=== PATIENT | female | born 1995 | race Two or more races ===

== ENCOUNTER 2021-01-06 16:23 | Emergency (ER) | payer OTHER ==
[~2021-01-06] VITALS: Ht 157.5 cm; Wt 43.1 kg
[2021-01-06] MEDS ORDERED: ATABEX DHA 200200 MG (16:35)
[2021-01-06] MEDS ORDERED: MONISTAT 745 GM VAG (17:37)
== END 2021-01-06 17:45 | disposition home or self-care (01) ==
LOC: ER 16:23
DX: N76.0 Acute vaginitis (principal)

== ENCOUNTER 2021-07-21 03:58 | Inpatient (IN) | payer OTHER ==
[~2021-07-21] VITALS: Ht 162.6 cm; Wt 50.8 kg
[~2021-07-21 03:58] MED LIST: ATABEX DHA 200200 MG; MONISTAT 745 GM VAG
== END 2021-07-23 11:56 | disposition home or self-care (01) | DRG 807 ==
LOC: LDR 03:58 → O/R 11:33 → LDR 11:34 → OB/GYN 16:41
PROVIDERS: ADMIT Obstetrics & Gynecology; ATTEND Obstetrics & Gynecology
PROC: 10E0XZZ Delivery of Products of Conception, External Approach (ICD-10-PCS; principal; 2021-07-21)
PROC: 4A1HXCZ Monitoring of Products of Conception, Cardiac Rate, External Approach (ICD-10-PCS; 2021-07-21)
PROC: 0UQG7ZZ Repair Vagina, Via Natural or Artificial Opening (ICD-10-PCS; 2021-07-21)
PROC: 3E033VJ Introduction of Other Hormone into Peripheral Vein, Percutaneous Approach (ICD-10-PCS; 2021-07-21)
DX: O71.4 Obstetric high vaginal laceration alone (principal); Z37.0 Single live birth; Z3A.38 38 weeks gestation of pregnancy; Z20.822 Contact with and (suspected) exposure to COVID-19

== ENCOUNTER 2021-07-31 06:42 | Outpatient (CLI) | payer OTHER | END 2021-07-31 13:53 | disposition home or self-care (01) | LOC: OBS/DEL 06:42 | PROVIDERS: ATTEND Obstetrics & Gynecology | DX: O72.1 Other immediate postpartum hemorrhage (principal); Z20.822 Contact with and (suspected) exposure to COVID-19 ==

== ENCOUNTER 2023-05-14 13:28 | Outpatient (CLI) | payer OTHER | END 2023-05-14 13:30 | disposition home or self-care (01) | LOC: PRENATAL 13:28 | PROVIDERS: ATTEND Obstetrics & Gynecology Maternal & Fetal Medicine | DX: O36.90X0 Maternal care for fetal problem, unspecified, unspecified trimester, not applicable or unspecified (principal); Z36.82 Encounter for antenatal screening for nuchal translucency; Z14.8 Genetic carrier of other disease; Z3A.13 13 weeks gestation of pregnancy ==

== ENCOUNTER 2023-06-30 11:18 | Outpatient (CLI) | payer OTHER | END 2023-06-30 11:19 | disposition home or self-care (01) | LOC: PRENATAL 11:18 | PROVIDERS: ATTEND Obstetrics & Gynecology Maternal & Fetal Medicine | DX: O35.3XX0 Maternal care for (suspected) damage to fetus from viral disease in mother, not applicable or unspecified (principal); O44.00 Complete placenta previa NOS or without hemorrhage, unspecified trimester; Z3A.19 19 weeks gestation of pregnancy ==

== ENCOUNTER 2023-09-27 15:19 | Outpatient (CLI) | payer OTHER | END 2023-09-27 15:20 | disposition home or self-care (01) | LOC: PRENATAL 15:19 | PROVIDERS: ATTEND Obstetrics & Gynecology Maternal & Fetal Medicine | DX: O26.843 Uterine size-date discrepancy, third trimester (principal); O36.8130 Decreased fetal movements, third trimester, not applicable or unspecified; Z3A.32 32 weeks gestation of pregnancy ==

== ENCOUNTER 2023-10-28 11:43 | Inpatient (IN) | payer OTHER ==
[~2023-10-28] VITALS: Ht 162.6 cm; Wt 55.8 kg
[2023-10-28] MEDS ORDERED: RINGERS SOLUTION,LACTATED 1,000 ML IV SCH (12:00)
[2023-10-28 12:43] LABS: URINE APPEARANCE Cloudy; URINE BILIRRUBIN Negative (NEGATIVE); URINE BLOOD Small; URINE COLOR Yellow; URINE GLUCOSE Negative (NEGATIVE); URINE KETONE Negative (NEGATIVE); URINE LEUKOCYTE Large; URINE NITRATE Negative
[2023-10-28 12:44] LABS: HEMATOCRIT 32.8 % (36.0-45.00); HEMOGLOBIN 11.5 g/dL (12.0-15.00); MEAN CELL VOLUME 86.8 fL (80.00-100.00); MEAN CORPUSCULAR HEMOGLOBIN 30.4 pg (27.00-32.0); MEAN CORPUSCULAR HGB CONC 35.1 g/dl (32.0-36.0); PLATELET COUNT 157 K/uL (150-450); RED BLOOD COUNT 3.78 M/uL (4.00-6.00); RED CELL DISTRIBUTION WIDTH 13.3 % (11.5-14.5); URINE BACTERIA 4044.6 uL (0.0-1933); URINE EPITHELIAL CELLS 111.4 uL (0.0-38.8); URINE RBC 21.6 uL (0.0-20.8); URINE WBC 128.6 uL (0.0-23.2)
[2023-10-28 13:04] LABS: URINE CAST 0.45 uL (0.0-1.40); URINE PROTEIN 100 (NEGATIVE); URINE YEAST MANY /hpf
[2023-10-28] MEDS ORDERED: PRENATAL TABLE1 EAC1 PO (13:13)
[2023-10-28 13:18] LABS: ALT/SGPT 10 U/L (12-78); AST/SGOT 22 U/L (15-37)
[2023-10-28] MEDS ORDERED: AMPICILLIN SODIUM 2,000 MG VIAL IV ONE (17:45)
[2023-10-28 18:30] LABS: INR 0.97; PARTIAL THROMBOPLASTIN TIME 30.6 SECONDS (22.0-34.0); PROTHROMBIN TIME 10.2 SECONDS (9.0-11.5)
[2023-10-28 18:31] LABS: CALCIUM 8.5 mg/dL (8.5-10.1); CREATININE SERUM 0.63 mg/dL (0.55-1.02); GFR 111.72; POTASSIUM 4.29 mEq/L (3.5-5.1)
[2023-10-28] MEDS ORDERED: AMPICILLIN SODIUM 1,000 MG VIAL IV SCH (21:00)
[2023-10-28] MEDS ORDERED: OXYTOCIN 20 UNITS/1000ML RL PIGGYBAG IV ONE (23:12)
[2023-10-28] MEDS ORDERED: ERYTHROMYCIN BASE 1 GM TUBE OP ONE (23:12)
[2023-10-28] MEDS ORDERED: LIDOCAINE HCL 1% 10ML VIAL ONE (23:13)
[2023-10-28] MEDS ORDERED: CHLORHEXIDINE GLUCONATE 120 ML BOTTLE TOP ONE (23:13)
[2023-10-29] MEDS ORDERED: OXYTOCIN 20 UNITS/500ML RL PIGGYBAG IV ONE (00:06)
[2023-10-29] MEDS ORDERED: OXYTOCIN 500 ML IV SCH (00:15)
[2023-10-29] MEDS ORDERED: MORPHINE SULFATE 4 MG/ML VIAL IV STA (01:27)
[2023-10-29] MEDS ORDERED: OXYTOCIN 10 UNITS/ML VIAL ONE (01:37)
[2023-10-29] MEDS ORDERED: IBUprofen 400 MG TABLET PO PRN (02:15)
[2023-10-29] MEDS ORDERED: ERYTHROMYCIN BASE 1 GM TUBE OP SCH (04:00)
[2023-10-29] MEDS ORDERED: CHLORHEXIDINE GLUCONATE 120 ML BOTTLE TP SCH (04:00)
[2023-10-29] MEDS ORDERED: OXYTOCIN 1,000 ML IV SCH (04:00)
[2023-10-29] MEDS ORDERED: OXYTOCIN 10 UNITS/ML VIAL IM STA (04:00)
[2023-10-29 05:34] LABS: BICARBONATE 22.8 mmol/l (23-25); SaO2 68.1 %; Tco2 24.2 mmol/l
[2023-10-29 06:16] LABS: o2 21 %
[2023-10-29] MEDS ORDERED: hydrALAZINE HCL 20 MG VIAL IV NR (06:45)
[2023-10-29 09:32] LABS: HEMATOCRIT 32.9 % (36.0-45.00); HEMOGLOBIN 11.7 g/dL (12.0-15.00); MEAN CELL VOLUME 86.5 fL (80.00-100.00); MEAN CORPUSCULAR HEMOGLOBIN 30.7 pg (27.00-32.0); MEAN CORPUSCULAR HGB CONC 35.4 g/dl (32.0-36.0); PLATELET COUNT 157 K/uL (150-450); RED BLOOD COUNT 3.81 M/uL (4.00-6.00); RED CELL DISTRIBUTION WIDTH 13.4 % (11.5-14.5)
[2023-10-29] MEDS ORDERED: NIFEDIPINE 30 MG TAB.SA.OSM PO NR (11:00)
[2023-10-29] MEDS ORDERED: NIFEDIPINE 30 MG TAB.SA.OSM PO SCH (17:00)
== END 2023-10-31 15:31 | disposition home or self-care (01) | DRG 807 ==
LOC: OBS/DEL 11:43 → LDR 22:55 → OB/GYN 10-29 03:50
PROVIDERS: ADMIT Obstetrics & Gynecology; ATTEND Obstetrics & Gynecology
PROC: 4A1HXCZ Monitoring of Products of Conception, Cardiac Rate, External Approach (ICD-10-PCS; 2023-10-28)
PROC: BY4FZZZ Ultrasonography of Third Trimester, Single Fetus (ICD-10-PCS; 2023-10-28)
PROC: 10E0XZZ Delivery of Products of Conception, External Approach (ICD-10-PCS; principal; 2023-10-29)
DX: O99.824 Streptococcus B carrier state complicating childbirth (principal); Z37.0 Single live birth; O26.843 Uterine size-date discrepancy, third trimester; O36.8130 Decreased fetal movements, third trimester, not applicable or unspecified; O14.94 Unspecified pre-eclampsia, complicating childbirth; Z3A.37 37 weeks gestation of pregnancy; Z20.822 Contact with and (suspected) exposure to COVID-19